=== PATIENT | male | born 1995 | race Caucasian/White ===

== ENCOUNTER 2019-04-06 19:23 | Emergency (ER) | payer OTHER, SELFPAY ==
--- NOTE | 2019-04-06 19:29 | ED_ITS ---
HPI - Back Pain/Injury General Chief Complaint: Back Pain/Injury Stated Complaint: back pain Time Seen by Provider: 04/06/19 19:29 Source: patient Mode of arrival: Ambulatory Limitations: no limitations History of Present Illness HPI Narrative: This is a 23-year-old male comes to the emergency department with complaint of back pain patient has had back pain for 9 months. He states initially he had a hernia repair in the front and afterwards he was off for 6 weeks and then started doing light weights and states he felt like he tore something in his eye demanding followed by injuring or tearing something in his back. Since then he has been to the physician on the [facility] 9 times, he has been to PT. 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 He states that he thinks that he has or pulled a muscle. He would like an answer to his problem today. He feels like he is getting the run around from the [employer]. He does not have pain radiating down his legs, he does not numbness, does not weakness. He does not any loss of bowel or bladder control. He states pain actually radiates up his back. He states he does sort of have a lump on the left side. Patient has not had fevers. He felt a little nauseated today but otherwise no other changes. He also complains of pain in his shins and IT band area on the right. Patient has not been taking any ibuprofen or Tylenol. He states they are not helpful. He has found other NSAID such as meloxicam helpful. Related Data Previous Rx's Medication Instructions Recorded meloxicam [Mobic] 7.5 mg PO BID PRN #14 tab 04/06/19 Review of Systems Review of Systems ROS Unobtainable: All systems reviewed & are unremarkable except as noted in HPI and below Constitutional Constitutional: Denies chills, Denies fever(s), Denies lethargy and Denies weakness Cardiovascular Cardiovascular: Denies chest pain and Denies dyspnea Respiratory Respiratory: Denies dyspnea Gastrointestinal Gastrointestinal: Denies abdominal pain, Denies change in bowel habits, Denies constipation, Denies fecal incontinence, Denies diarrhea, Reports nausea (earlier today) and Denies vomiting Genitourinary Genitourinary: Denies hematuria, Denies flank pain, Denies urinary frequency, Denies urinary hesitancy, Denies urinary incontinence and Denies urinary urgency Musculoskeletal Musculoskeletal: Reports as per HPI, Denies abnormal gait, Reports back pain, Reports myalgias, Reports limited range of motion, Denies muscle weakness, Denies numbness, Denies radiating pain into limb, Reports stiffness and Denies tingling Integumentary/Breasts Skin/Breast: Denies erythema, Denies unusual bruising and Denies wounds Neurologic Neurologic: Denies abnormal gait, Denies numbness, Denies tingling and Denies weakness Exam Narrative Exam Narrative: GENERAL: Alert and oriented x three, well-nourished, well- appearing male in mild distress HEENT: Head normocephalic, atraumatic, EOMI, pupils reactive, face symmetric, moist mucous membranes NECK: Supple, full range of motion CARDIOVASCULAR: Regular rate and rhythm without murmurs, rubs or gallops. RESPIRATORY: Breath sounds equal bilaterally, no wheezes rales or rhonchi. ABDOMEN: Soft, nontender. Normoactive bowel sounds all 4 quadrants. No guarding or rebound, rigidity, no mass : No CVA tenderness BACK: No cervical, thoracic or lumbar vertebral point tenderness. Patient does have some on the left quadratus region, it does not feel like a mass but does have fullness does protrude slightly from the back. Patient has normal range of motion. Patient's gait is normal. Rectal exam is deferred. Muscle strength is 5/5 in lower extremities, DTRs are 2/4 and lower extremities. Dorsalis pedis and tibialis pulses are 2+ and lower extremities. Sensation is intact in the lower extremities. EXTREMITIES: Normal range of motion, no clubbing or edema. Neurovascularly intact NEUROLOGICAL: Cranial nerves II through XII grossly intact. Moving all extremities SKIN: Warm, dry, no petechiae, no rashes or lesions. Initial Vital Signs Initial Vital Signs: Vital Signs Temperature 97.6 F 04/06/19 19:37 Pulse Rate 112 H 04/06/19 19:37 Respiratory Rate 20 04/06/19 19:37 Blood Pressure 148/99 H 04/06/19 19:37 Pulse Oximetry 98 04/06/19 19:37 Course Orders Ordered: Discontinued Medications Meloxicam (Mobic) 7.5 mg PO NOW ONE Stop: 04/06/19 19:49 Last Admin: 04/06/19 20:13 Dose: 7.5 mg Documented by: DIANA Vital Signs Vital signs: Vital Signs - 8 hr 04/06/19 19:37 Temperature 97.6 F Pulse Rate 112 H Respiratory Rate 20 Blood Pressure 148/99 H Pulse Oximetry 98 MDM - Back Pain/Injury MDM Narrative Medical decision making narrative: Discussed with patient I feel like he would benefit from some additional imaging possibly an MRI. We discussed having a follow-up with Orthopedic surgery. We discussed he could potentially have a tumor such lipoma or similar underneath the skin but that it did not feel discretely like this today. Patient is interested in having this follow-up available as he is frustrated with his care through the [facility]. Given a short course of Mobic which he has found helpful in the past. Discharge Plan Departure Patient Disposition: Home Clinical Impression: Back pain Discharge Date/Time: 04/06/19 20:24 Instructions: DI for Back Spasm Activity Restrictions/Additional Instructions: Follow-up with Orthopedic surgery call tomorrow morning for an appointment. You may take Mobic once twice daily for pain. Do not take this with ibuprofen or other NSAIDs. You may take Tylenol up to a 1000 mg every 8 hours with this medication. Return to the emergency department for fevers greater 100.4 F, persistent vomiting, passing, new weakness, numbness, loss of sensation in your extremities, loss of bowel or bladder control or other new or concerning symptoms Prescriptions: New meloxicam [Mobic] 7.5 mg tablet 7.5 mg PO BID PRN (Reason: pain, moderate) Qty: 14 RF: 0
[2019-04-06 19:37] VITALS: BP 148/99; PULSE 112; RESP 20; TEMP 36.4; O2SAT 98
[2019-04-06] MEDS: MELOXICAM 7.5 MG TABLET PO (20:13)
== END 2019-04-06 20:24 | disposition home or self-care (01) ==
PROVIDERS: Emergency Provider Emergency Medicine
DX: M54.9 Dorsalgia, unspecified (principal)
CPT/HCPCS: 99282; 99283

== ENCOUNTER → 2020-08-21 14:25 | Outpatient (CLI) | payer OTHER, SELFPAY ==
--- NOTE | 2020-08-21 | DI.MRI.S_ITS ---
PROCEDURE: MR HIP RT WO CON INDICATIONS: Pain in right hip,Pain in thoracic spine TECHNIQUE: Noncontrast coronal T1 spin echo and STIR through the bony pelvis. Coronal and axial T2 fast spin echo with fat saturation, sagittal T1 spin echo, and oblique axial T2 fast spin echo with fat saturation through the hip. COMPARISON: None. FINDINGS: Image quality: Excellent. Bones and joints: There is focal area of osseous prominence involving anterior right femoral head neck junction with underlying subcortical cyst formation which can be seen associated with CAM type femoral acetabular impingement. Nonspecific mild edema involving anterior aspect of femoral neck is also seen without discrete fracture line. No other area of marrow signal abnormality. No intraosseous lesions or fractures. No avascular necrosis of the femoral heads. The visualized lower lumbar spine appears normally aligned. Tendons and ligaments: The gluteus medius and minimus tendons appear intact, without associated muscle atrophy. The nearby proximal iliotibial band also appears intact. The iliopsoas tendon appears intact, without adjacent bursal fluid collections or evidence for impingement syndrome. The origin of the hamstring tendon is intact at the ischial tuberosity, as well as the associated sacrotuberous ligament. The straight and reflected heads of the rectus femoris muscle origin appear intact, as well as the conjoint tendon. The ligamentum teres appears intact where visualized. Labrum and cartilage: There is suggestion of focal superior anterior right hip labral tear in the absence of intra-articular contrast. Cartilage surface of the femoral head appears of normal thickness. The alpha angle of the femur is within normal limits at less than 55 degrees. Soft tissues: Visualized muscles demonstrate normal bulk and internal signal. Quadratus femoris muscle demonstrates no internal edema to suggest ischiofemoral impingement. The proximal sciatic neurovascular bundle appears normal adjacent to the hamstring tendons. No free pelvic fluid. Bladder wall thickness is normal. Genitourinary structures and bowel loops appear normal where visualized. IMPRESSION: 1. Finding is suspicious for superior anterior right hip labral tear in the absence of intra-articular contrast. 2. Prominence of anterior right femoral head neck junction which can be seen associated with cam type femoral acetabular impingement. No fracture or dislocation. Nonspecific mild edema involving anterior periphery of right femoral neck. No evidence of avascular necrosis of femoral head. 3. No gross right hip muscle or tendon signal abnormality. Dictated by: Moe Hayward M.D. on 08/23/2020 at 9:05 Approved by: Moe Hayward M.D. on 08/23/2020 at 9:53
== END ==
PROVIDERS: PCP Family Medicine; Referring Provider Family Medicine; Visit Provider Family Medicine
DX: M25.551 Pain in right hip (principal); M54.6 Pain in thoracic spine
CPT/HCPCS: 73721

== ENCOUNTER 2020-11-14 15:33 | Emergency (ER) | payer OTHER, SELFPAY ==
[2020-11-14 15:39] VITALS: BP 133/77; PULSE 88; RESP 16; TEMP 36.9; O2SAT 99
--- NOTE | 2020-11-14 16:21 | PC.NURSE ---
pt states he had been on 2 rounds of antibiotics before the wisdom teeth removal and didn't want to take a 3rd round so he has only been taking nsaids and tylenol. pt states he has a bad taste in his mouth and swelling to left lower jaw.
--- NOTE | 2020-11-14 16:30 | ED.DENTAL ---
HPI - Dental/Oral General Chief complaint: Dental/Oral Stated complaint: [place] Tooth Complications Time Seen by Provider: 11/14/20 15:48 Source: patient Mode of arrival: Ambulatory History of Present Illness HPI Narrative: Richard is a 25-year-old male with no significant past medical history who presents today with chief complaint of continued mouth pain. He reports that he had a root canal done approximately 5 days ago and has had continued pain since that time. He reports his symptoms have slightly improved since the procedure but he continues to have a foul taste in his mouth. He is concerned that he may have an infection at this time. He reports that prior to the surgery he had some swelling on his face but that seems to be improving. He denies any fever, headache, difficulty swallowing, difficulty breathing, chest pain, neck stiffness or any other acute concerns or complaints at this time. MD Complaint: tooth pain Related Data Previous Rx's Medication Instructions Recorded meloxicam [Mobic] 7.5 mg PO BID PRN #14 tab 04/06/19 Allergies Allergy/AdvReac Type Severity Reaction Status Date / Time No Known Drug Allergies Allergy Verified 11/14/20 15:42 Review of Systems Review of Systems Narrative: as per HPI ROS Unobtainable: All systems reviewed & are unremarkable except as noted in HPI and below Exam Narrative Exam Narrative: Exam Narrative: Const General: cooperative, healthy appearing, comfortable, no acute distress, well developed and well groomed Nutritional Appearance: average body habitus Orientation: alert and oriented x3 HENMT Head: normal to inspection and atraumatic Ears: hearing grossly normal bilaterally Nose: external nose normal and nares normal Mouth: no significant gingival erythema or edema noted. No dental abscess identified. Tongue normal. Face and sinus: normal facial exam Neck Neck: normal visual inspection and supple, no cervical lymphadenopathy noted. Resp Effort & Inspection: normal respiratory effort, able to speak in complete sentences, no audible wheezes, not labored, no nasal flaring and no respiratory distress Neuro General: alert, oriented x3, gait normal, tone normal and moves all extremities Cognition: normal cognition Speech: speech normal Gait: normal gait Psych Appearance: grossly normal and well kempt Mental Status: mental status grossly normal Speech and Movement: speech and movement normal Mood: congruent mood Affect: normal affect Initial Vital Signs Initial Vital Signs: Vital Signs Temperature 98.4 F 11/14/20 15:39 Pulse Rate 88 11/14/20 15:39 Respiratory Rate 16 11/14/20 15:39 Blood Pressure 133/77 11/14/20 15:39 Pulse Oximetry 99 11/14/20 15:39 Course Orders Ordered: Discontinued Medications Ketorolac Tromethamine (Ketorolac 30 Mg/Ml Vial) 30 mg IM NOW ONE Stop: 11/14/20 16:32 Last Admin: 11/14/20 16:37 Dose: 30 mg Documented by: ELLY Vital Signs Vital signs: Vital Signs - 8 hr 11/14/20 15:39 Temperature 98.4 F Pulse Rate 88 Respiratory Rate 16 Blood Pressure 133/77 Pulse Oximetry 99 MDM - Dental/Oral Differential Diagnosis Differential diagnosis: Likely gingival abscess, dental caries, fracture of tooth and other ( Gingivitis, dry socket) MDM Narrative Medical decision making narrative: Physical examination is reassuring at this time. No significant evidence of infection. Airways patent with no Danger of obstruction. Patient is able to follow up with his dentist early next week. Recommend continued use of his medication that he has at home in addition to adding acetaminophen. Recommend avoiding overly hot or cold foods or fluids. Return precautions include facial swelling, difficulty swallowing, difficulty breathing, fever or any other new or worsening complaints. Patient verbalizes understanding and agrees to plan and has no further concerns at this time. Thank you A [id number] system was used with the dictation of this note. Please disregard any spelling or grammatical errors. Discharge Plan Departure Patient Disposition: Home Clinical Impression: Toothache Discharge Date/Time: 11/14/20 16:48 Instructions: DI for Dental Pain Prescriptions: No Action meloxicam [Mobic] 7.5 mg tablet 7.5 mg PO BID PRN (Reason: pain, moderate) Qty: 14 RF: 0 Referrals: Radha Helms MD [Primary Care Provider] -
[2020-11-14] MEDS: KETOROLAC 30 MG/ML VIAL IM (16:37)
== END 2020-11-14 16:48 | disposition home or self-care (01) ==
PROVIDERS: Emergency Provider Physician Assistant; PCP Family Medicine
DX: K08.89 Other specified disorders of teeth and supporting structures (principal)
CPT/HCPCS: 96372; 99283; J1885